=== PATIENT | female | born 1955 | race Caucasian/White ===

== ENCOUNTER → 2025-03-30 | Outpatient (CLI) | payer MEDICARE ==
[2025-03-30 11:09] VITALS: BP 164/94; PULSE 93; RESP 17; TEMP 98.3
--- NOTE | 2025-03-30 11:27 | P.PN ---
Subjective Progress Note Date: 03/30/25 03-30-25 History of Present Illness Reason for Consult: Biopsy-proven left breast invasive lobular carcinoma Requesting physician: Malissa Krishnan History of present illness: Jerica is a 69-year-old female seen in consultation on 01-19-[address] Krishnan regarding a biopsy-proven left breast invasive lobular carcinoma. She underwent a bilateral mammogram on 02-09-2024. That did not show anything of concern but at that time she was complaining of fullness in the left breast and a left breast ultrasound was recommended. The left breast ultrasound was performed on 06-07-2024 which revealed a 27 x 22 mm lesion at the site of palpable abnormality in the left breast. A biopsy was recommended. The patient failed to get the biopsy secondary to the fact that she did not have transportation and her refused to bring her for a biopsy during the winter months. She ultimately had a biopsy in 01 03 25 of the area of concern in the left breast. Pathology revealed an invasive lobular carcinoma grade 2. This was ER positive HI negative HER2 negative. She has been able to feel the lump in her breast for about one year and it has increased in size. It is a burning pain. She has no other lumps masses or nodules. She has had no recent trauma or infection in the breast. She has no other lumps masses or nodules of concern. She has never had any surgery on her breast. She tolerated the biopsy without difficulty but did get a bruise. She did have appointments last year to get a biopsy but her kept canceling the appointments. Review note from Dr. Krishnan of 12-18-2024 Case presented at tumor board on 01 29 25. She was recommended to follow-up with medical oncology we are awaiting an Oncotype she may have neoadjuvant endocrine or hormone therapy. She will follow-up here after decision is made regarding that. I have called and left a message for her on her answering machine. 1. Right breast mammogram; ) she had an MRI no right breast mammogram as per patient) 2. Bilateral breast MRI secondary to invasive lobular carcinoma; no lesions in the right breast, left breast know lesion and small satellite lesion near know left breast cancer 3. PET scan metastatic workup (-) 4. Presentation of case at tumor board done 01-29-25 5. Oncotype on the tumor: 14 6. Appointment medical oncology; consider neoadjuvant treatment; genetic test ing no neoadjuvant therapy; patient states she was started on anastrozole and is tolerating this without difficulty 7. genetic testing: VUS by verbal report The patient would like to avoid a mastectomy if possible and is interested in a left breast lumpectomy, possible oncoplastic tissue transfer, left sentinel node biopsy possible axillary node dissection. note medical oncology 02-07-25 reviewed caffeine: occasional nicotine: none, stopped about 40 years ago, used to smoke 2 PPD for about 3 years, hhusband smokes 2-3 pack /day chocolate: weekly BCP: for about 4 years hormones: none Family History: mother: breast cancer Hormonal History: menarche: 13 G0 menopause: 43 Surgical History: none Medical History: arthritis Social History:'nicotine: as above alcohol: none drugs: none Review of Systems - Constitutional Denies fever, Denies weight loss - EENT Eyes: denies blurred vision Ears: deny: decreased hearing, tinnitus Ears, nose, mouth and throat: Reports dysphagia - Breasts bilateral: as per HPI - Cardiovascular Denies chest pain, Denies shortness of breath - Respiratory Reports as per HPI - Gastrointestinal Reports as per HPI - Genitourinary Genitourinary: Denies dysuria, Denies hematuria Menstruation: Reports postmenopausal - Musculoskeletal Musculoskeleta Comment(s): arthritis burning pain all joints - Integumentary Denies rash, Denies unusual bruising - Neurological Denies headaches, Denies syncope - Psychiatric Reports as per HPI - Endocrine Endocrine Comment(s): decreased weight 103 pds Reports weight change - Hematologic/Lymphatic Denies easy bleeding, Denies easy bruising - Allergic/Immunologic Reports as per HPI Objective - Vital Signs Vital signs: Vital Signs Temp 98.3 F 03/30/25 10:53 Pulse 93 03/30/25 10:53 Resp 17 03/30/25 10:53 BP 164/94 03/30/25 10:53 Pulse Ox 99 03/30/25 10:53 FiO2 Intake & Output 03/29/25 03/30/25 03/30/25 18:59 06:59 18:59 Weight 46.72 kg - Constitutional General appearance: Present: cooperative - EENT Eyes: Present: EOMI ENT: Present: hearing grossly normal - Neck Neck: Present: normal ROM - Respiratory Respiratory: bilateral: CTA - Cardiovascular Rhythm: regular Heart sounds: normal: S1, S2 - Integumentary Integumentary: Present: normal turgor - Musculoskeletal Musculoskeletal: Present: gait normal - Psychiatric Psychiatric: Present: A&O x's 3, appropriate affect, intact judgment & insight - Additional findings Additional findings: Breast Exam: BRA: 36B Inspection: Bilateral nipple inversion/chronic fullness in the left breast in the upper outer quadrant Palpation: Right breast: Multi positional exam no dominant masses or nodules of concern Right axilla: No adenopathy of concern Left breast: Multi positional exam mass in the upper outer quadrant approximately 3-1/2 cm x 3 cm freely mobile No other dominant masses or nodules of concern Left axilla: Shotty adenopathy Assessment and Plan Assessment: Impression: Invasive lobular carcinoma left breast Arthritis Plan: Presentation of case at tumor board done 01-29-25 left breast needle localization lumpectomy with possible oncoplastic tissue transfer, left sentinel node injection, left sentinel node biopsy, possible left axillary node dissection Clearance Dr. Krishnan Consent: I have discussed the risks, benefits and alternative therapies for the above-mentioned procedure and for both sedation/analgesia as well as necessary blood product administration, if indicated, as they pertain to this patient. The patient has indicated understanding and acceptance of the risks and procedures discussed. functional assessment: passed arm abduction pre-op education given CC: Dr. Krishnan
== END ==
LOC: WWCWWP 10:27
PROVIDERS: ATTEND Surgery
DX: C50.912 Malignant neoplasm of unspecified site of left female breast (principal); M19.90 Unspecified osteoarthritis, unspecified site